=== PATIENT | female | born 2000 | race Caucasian/White ===

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

== ENCOUNTER 2023-12-14 17:32 | Inpatient (IN) | payer BC ==
[~2023-12-14] VITALS: Ht 154.9 cm; Wt 75.0 kg
[2023-12-14] VITALS (10 sets, daily range): BP systolic 128–148; BP diastolic 59–93
[~2023-12-14 17:32] MED LIST changes: +ONDA4ODT MM
[2023-12-14] MEDS ORDERED: Ampicillin Sod 2,000 MG in NS 100 ML IV STA (17:44)
[2023-12-14] MEDS ORDERED: ePHEDrine Sulfate 50 MG/ML 1ML Injection XX PRN (17:45)
[2023-12-14] MEDS ORDERED: Oxytocin 10 Unit / ML Vial IM SCH (17:45)
[2023-12-14] MEDS ORDERED: OXYTOCIN/RINGER'S LACTATE 500 ML IV SCH (17:45)
[2023-12-14] MEDS ORDERED: Castor Oil 59.146 ML BTL TOP SCH (17:45)
[2023-12-14] MEDS ORDERED: Bupivacaine 0.5% HCl 5 MG/ML 30MLVIAL XX SCH (17:45)
[2023-12-14] MEDS ORDERED: Bupivacaine HCl 2.5 MG/ML 10ML P/F Injection XX SCH (17:45)
[2023-12-14] MEDS ORDERED: Lactated Ringer's 1,000 ML IV PRN (17:45)
[2023-12-14] MEDS ORDERED: Methylergonovine Maleate 0.2MG / ML 1ML Amp IM SCH (17:45)
[2023-12-14] MEDS ORDERED: Lactated Ringer's 1,000 ML IV SCH ×2 (17:45)
[2023-12-14] MEDS ORDERED: FentaNYL 2mcg/ml-Bup 0.1% Epd 250 ML EPI PRN (17:45)
[2023-12-14] MEDS ORDERED: Lidocaine HCl 1% 30 ML SDV XX SCH (17:45)
[2023-12-14] MEDS ORDERED: Misoprostol 200 MCG Tab PR SCH (17:45)
[2023-12-14] MEDS ORDERED: Ondansetron HCl 2 MG / ML 2ML Vial IV PRN (17:55)
[2023-12-14] MEDS ORDERED: FentaNYL Citrate 50 MCG/ML 2 ML Injection IV PRN (17:55)
[2023-12-14] MEDS ORDERED: PRENATAL 19 TA1 EAC3 (18:19)
[2023-12-14 18:44] LABS: BASOPHILS ABSOLUTE AUTO 0.01 K/mm3 (0.00-0.23); BASOPHILS PERCENT AUTO 0 % (0-2); EOSINOPHILS ABSOLUTE AUTO 0.03 K/mm3 (0.00-0.68); EOSINOPHILS PERCENT AUTO 0 % (0-6); Hematocrit 30.4 % (33.0-51.0); Hemoglobin 10.4 g/dL (11.5-16.0); IMMATURE GRAN ABSOLUTE AUTO 0.04 K/mm3 (0.00-0.10); IMMATURE GRAN PERCENT AUTO 1 % (0-1); LYMPHOCYTES ABSOLUTE AUTO 1.14 K/mm3 (0.84-5.20); LYMPHOCYTES PERCENT AUTO 16 % (21-46); MONOCYTES ABSOLUTE AUTO 0.45 K/mm3 (0.16-1.47); MONOCYTES PERCENT AUTO 6 % (4-13); Mean Corpuscular HGB 28.2 pg (26.0-34.0); Mean Corpuscular HGB Conc 34.2 g/dL (31.5-36.5); Mean Corpuscular Volume 82 fL (80-100); Mean Platelet Volume 11.8 fL (9.1-12.4); NEUTROPHILS ABSOLUTE AUTO 5.34 K/mm3 (1.96-9.15); NEUTROPHILS PERCENT AUTO 76 % (41-73); Platelet Count 138 K/mm3 (150-400); RDW Coefficient Variation 12.4 % (11.7-14.2); RDW Standard Deviation 36.8 fL (35.1-46.3); Red Blood Cell Count 3.69 M/mm3 (3.80-5.20); White Blood Cell Count 7.01 K/mm3 (4.00-11.30)
[2023-12-14] MEDS ORDERED: FentaNYL Citrate 50 MCG/ML 2 ML Injection ONE (21:33)
[2023-12-14] MEDS ORDERED: Ampicillin Sod 1,000 MG in NS 100 ML IV SCH (22:00)
[2023-12-14] MEDS ORDERED: Calcium Carbonate 500 MG Tab Chew PO PRN (23:15)
[2023-12-14] MEDS ORDERED: Acetaminophen 325 MG TABLET PO PRN (23:15)
[2023-12-15] VITALS (15 sets, daily range): BP systolic 120–143; BP diastolic 59–89
[2023-12-15] MEDS ORDERED: Methylergonovine Maleate 0.2MG / ML 1ML Amp IM PRN (03:20)
[2023-12-15] MEDS ORDERED: Lactated Ringer's 1,000 ML IV SCH (03:20)
[2023-12-15] MEDS ORDERED: OXYTOCIN/RINGER'S LACTATE 500 ML IV SCH (03:25)
[2023-12-15] MEDS ORDERED: Ibuprofen 400 MG Tab PO PRN (03:25)
[2023-12-15] MEDS ORDERED: Acetaminophen 325 MG TABLET PO PRN (03:25)
[2023-12-15] MEDS ORDERED: Misoprostol 200 MCG Tab PR PRN (03:25)
[2023-12-15] MEDS ORDERED: Benzocaine Topical Anesthetic Spray 60GM TOP PRN (03:25)
[2023-12-15] MEDS ORDERED: Witch Hazel/Glycerin PADS TOP PRN (03:25)
[2023-12-15] MEDS ORDERED: Ketorolac Tromethamine 30mg Vial IV SCH (04:00)
[2023-12-15 06:25] LABS: BASOPHILS ABSOLUTE AUTO 0.02 K/mm3 (0.00-0.23); BASOPHILS PERCENT AUTO 0 % (0-2); EOSINOPHILS ABSOLUTE AUTO 0.01 K/mm3 (0.00-0.68); EOSINOPHILS PERCENT AUTO 0 % (0-6); Hematocrit 27.8 % (33.0-51.0); Hemoglobin 9.4 g/dL (11.5-16.0); IMMATURE GRAN ABSOLUTE AUTO 0.05 K/mm3 (0.00-0.10); IMMATURE GRAN PERCENT AUTO 0 % (0-1); LYMPHOCYTES ABSOLUTE AUTO 1.23 K/mm3 (0.84-5.20); LYMPHOCYTES PERCENT AUTO 10 % (21-46); MONOCYTES ABSOLUTE AUTO 0.66 K/mm3 (0.16-1.47); MONOCYTES PERCENT AUTO 5 % (4-13); Mean Corpuscular HGB 28.2 pg (26.0-34.0); Mean Corpuscular HGB Conc 33.8 g/dL (31.5-36.5); Mean Corpuscular Volume 84 fL (80-100); Mean Platelet Volume 11.9 fL (9.1-12.4); NEUTROPHILS ABSOLUTE AUTO 10.25 K/mm3 (1.96-9.15); NEUTROPHILS PERCENT AUTO 84 % (41-73); Platelet Count 135 K/mm3 (150-400); RDW Coefficient Variation 12.3 % (11.7-14.2); RDW Standard Deviation 37.2 fL (35.1-46.3); Red Blood Cell Count 3.33 M/mm3 (3.80-5.20); White Blood Cell Count 12.22 K/mm3 (4.00-11.30)
[2023-12-15] MEDS ORDERED: Rho(D) Immune Globulin 300 MCG / SYR IM ONE ×2 (08:05→13:50)
[2023-12-15] MEDS ORDERED: Prenatal Vit/FE Fumarate/FA 1 Tab PO SCH (09:00)
[2023-12-16] MEDS ORDERED: Ketorolac Tromethamine 30mg Vial IV ONE (02:10)
[2023-12-16 04:35] VITALS: BP 120/75
[2023-12-16 08:49] VITALS: BP 132/80
[2023-12-16 11:34] VITALS: BP 131/77
--- NOTE | 2023-12-16 14:51 | NUR ---
UPDATED PER EMR
[2023-12-16] MEDS ORDERED: Lanolin Cream TOP SCH (15:00)
== END 2023-12-16 15:30 | disposition home or self-care (01) | DRG 807 ==
LOC: BC 17:32 → OBS 17:32 → BC 17:52
PROVIDERS: ADMIT Obstetrics & Gynecology
PROC: 10E0XZZ Delivery of Products of Conception, External Approach (ICD-10-PCS; principal; 2023-12-15)
PROC: 0HQ9XZZ Repair Perineum Skin, External Approach (ICD-10-PCS; 2023-12-15)
PROC: 3E0R3BZ Introduction of Anesthetic Agent into Spinal Canal, Percutaneous Approach (ICD-10-PCS; 2023-12-15)
PROC: 00HU33Z Insertion of Infusion Device into Spinal Canal, Percutaneous Approach (ICD-10-PCS; 2023-12-15)
DX: O42.02 Full-term premature rupture of membranes, onset of labor within 24 hours of rupture (principal); O21.2 Late vomiting of pregnancy; Z37.0 Single live birth; O70.0 First degree perineal laceration during delivery; Z3A.36 36 weeks gestation of pregnancy; O69.81X0 Labor and delivery complicated by cord around neck, without compression, not applicable or unspecified
CPT/HCPCS: 36415; 51702; 59025; 81003; 85025; 85460; 86850; 86870; 86900; 86901; 96374; 99213; A9270; J0290; J1885; J2405; J2791; J7120

== ENCOUNTER 2025-04-16 18:57 | Emergency (ER) | payer OTHER ==
[~2025-04-16] VITALS: Ht 154.9 cm; Wt 58.1 kg
[~2025-04-16 18:57] MED LIST changes: +PRENATAL 19 TA1 EAC3
[2025-04-16 19:05] VITALS: BP 131/70
[2025-04-16] MEDS ORDERED: Trimethoprim/Sulfamethoxazole DS Tab PO ONE (19:10)
== END 2025-04-16 19:59 | disposition home or self-care (01) ==
LOC: ER 18:57
DX: N39.0 Urinary tract infection, site not specified (principal); Z76.89 Persons encountering health services in other specified circumstances
CPT/HCPCS: 99283; A9270